=== PATIENT | male | born 1965 | race Caucasian/White ===

== ENCOUNTER 2021-08-07 07:52 | Emergency (ER) | payer MEDICAID, OTHER ==
[~2021-08-07] VITALS: Ht 165.1 cm; Wt 76.0 kg
[2021-08-07 08:04] VITALS: BP 150/81
== END 2021-08-07 09:31 | disposition home or self-care (01) ==
LOC: ER 07:52
DX: Z48.03 Encounter for change or removal of drains (principal); K65.1 Peritoneal abscess
CPT/HCPCS: 99281